=== PATIENT | male | born 1980 ===

== ENCOUNTER 2018-07-02 18:34 | Emergency (ER) | payer SELFPAY ==
[2018-07-02 19:47] VITALS: BP 122/84; PULSE 91; RESP 20; TEMP 97.9; O2SAT 97
--- NOTE | 2018-07-02 21:52 | C.PDOC ---
History Of Present Illness 37 year old male presents to the emergency department with complaints of b/l leg pain and swelling for 4 weeks . Patient states that he notices the pain when he wakes up in the morning. He reports that he has pain to b/l feet upon standing. He denies trauma denies prolonged travel, no recent immobilization state, no recent leg fracture, no SOB Time Seen by Provider: 07/02/18 20:06 Chief Complaint (Nursing): Lower Extremity Problem/Injury History Per: Patient History/Exam Limitations: no limitations Onset/Duration Of Symptoms: Other (4 weeks) Current Symptoms Are (Timing): Still Present Past Medical History Reviewed: Historical Data, Nursing Documentation, Vital Signs Vital Signs: Last Vital Signs Temp 97.9 F 07/02/18 19:40 Pulse 91 H 07/02/18 19:40 Resp 20 07/02/18 19:40 BP 122/84 07/02/18 19:40 Pulse Ox 97 07/02/18 19:40 - Medical History PMH: No Chronic Diseases Surgical History: No Surg Hx Family History: States: No Known Family Hx - Social History Hx Alcohol Use: No Hx Substance Use: No Review Of Systems Except As Marked, All Systems Reviewed And Found Negative. Constitutional: Negative for: Fever, Chills Gastrointestinal: Negative for: Nausea, Vomiting Musculoskeletal: Positive for: Leg Pain (b/l), Foot Pain (b/l). Negative for: Other (recent leg fractures) Physical Exam - Physical Exam Appears: Well, Non-toxic, No Acute Distress Skin: Normal Color, Warm, Dry Head: Atraumatic, Normacephalic Eye(s): bilateral: Normal Inspection, PERRL, EOMI Neck: Normal, Supple Chest: Symmetrical, No Tenderness Cardiovascular: Rhythm Regular, No Murmur Respiratory: Normal Breath Sounds, No Rales, No Rhonchi, No Wheezing Extremity: Tenderness (over the tibial peter area bilaterally, tenderness to the bilateral ankles), No Calf Tenderness, Capillary Refill (< 2 seconds), Swelling (+1 pitting edema at b/l ankle. NO calf swelling), Other (varicose veins to the bilateral legs. NO palpable mass. ) Pulses: Left Dorsalis Pedis: Normal, Right Dorsalis Pedis: Normal Neurological/Psych: Oriented x3, Normal Speech, Normal Cognition ED Course And Treatment O2 Sat by Pulse Oximetry: 97 (RA) Pulse Ox Interpretation: Normal Progress Note: Plan: D-Dimer reviewed and normal. Pt advised to takr Motrin or advil and need PMD f/u Disposition Counseled Patient/Family Regarding: Diagnosis, Need For Followup, Rx Given - Disposition Referrals: [facility] [Outside] Disposition: HOME/ ROUTINE Disposition Time: 21:47 Condition: STABLE Additional Instructions: Please follow up with PMD or in clinic Leg elevation Return to ER if worse Prescriptions: Ibuprofen [Motrin] 600 mg PO Q6H #20 tab Instructions: Deep Vein Thrombosis (Blood Clots in the Legs), Dependent Edema (DC) Forms: [employer] (Vietnamese) - Clinical Impression Clinical Impression: Bilateral leg edema - PA / [employer]PERVIS[employer] CHLORINE [employer]CTION / Resident Statement MD/DO has reviewed & agrees with the documentation as recorded. - Scribe Statement The provider has reviewed the documentation as recorded by the Scribe (Andre Chen) All medical record entries made by the Scribe were at my direction and personally dictated by me. I have reviewed the chart and agree that the record accurately reflects my personal performance of the history, physical exam, medical decision making, and the department course for this patient. I have also personally directed, reviewed, and agree with the discharge instructions and disposition.
== END 2018-07-02 21:57 | disposition home or self-care (01) ==
LOC: C.ER 18:34
DX: R60.0 Localized edema (principal)